=== PATIENT | male | born 1950 | race Caucasian/White ===

== ENCOUNTER 2021-10-07 07:52 | Emergency (ER) | payer MEDICARE, SELFPAY ==
--- NOTE | ~2021-10-07 | XR_ITS ---
EXAMINATION: XR chest 1V DATE: 10/07/2021 11:49 INDICATION: Hypertension. TECHNIQUE: A single frontal view of the chest was obtained. COMPARISON: Chest single view 12/02/2009, chest CT 05/27/2007 FINDINGS: There is a diffuse interstitial pattern in the lungs. There are airspace opacities in the l ower lung zones. No pleural effusion or pneumothorax. The heart size is normal. IMPRESSION: 1. Diffuse lung disease, likely mild pulmonary edema and basilar atelectasis versus pneumonia. Reviewed, dictated and finalized at location A. ING IN MACHINE TENDER IMPRESSION: 1. Diffuse lung disease, likely mild pulmonary edema and basilar atelectasis ve rsus pneumonia.
[2021-10-07 08:03] VITALS: BP 162/107; PULSE 65; RESP 16; TEMP 36.6; O2SAT 100
--- NOTE | 2021-10-07 08:03 | ED.GENADULT ---
HPI - General Adult General Chief complaint: Recheck/Abnormal Lab/Rx Stated complaint: htn x 2 days Time Seen by Provider: 10/07/21 08:01 Source: patient and family Mode of arrival: ambulatory Limitations: no limitations History of Present Illness HPI narrative: Patient woke up this morning with slight frontal headache, blood pressure was 170/120, less than 5 minutes after taking his morning blood pressure medicine. Currently patient denying any symptoms. Patient is status post cardioversion for atrial fibrillation 5 days ago. Patient on Xarelto. Currently patient is asymptomatic. Patient is fully vaccinated for COVID-19. Patient used to be on chlorthalidone 25 mg once a day, which is stopped almost 2 weeks ago. Patient also telling me that he been gaining weight over the last 2 weeks about 15 pounds. Related Data Home Medications Medication Instructions Recorded Confirmed lisinopril 5 mg tablet 5 mg PO DAILY 09/09/19 01/30/21 magnesium oxide 400 mg (241.3 mg 400 mg PO DAILY 09/09/19 01/30/21 magnesium) tablet potassium chloride 10 mEq 10 meq PO DAILY 09/09/19 01/30/21 tablet,extended release sotalol 120 mg tablet 120 mg PO Q12H 09/09/19 01/30/21 chlorthalidone 25 mg tablet 25 mg PO DAILY 01/23/21 01/30/21 rivaroxaban 20 mg tablet 20 mg PO QPM 01/23/21 01/30/21 Allergies Allergy/AdvReac Type Severity Reaction Status Date / Time Iodinated Contrast Media Allergy Unknown Unknown Verified 10/07/21 08:09 tetracycline Allergy Unknown Unknown Verified 10/07/21 08:09 Tetracyclines Allergy Unknown Unknown Verified 10/07/21 08:09 Contrast Media Allergy Severe RASH Uncoded 01/23/21 15:08 Review of Systems Review of Systems: CONSTITUTIONAL: Denies fever, chills, or sweats. EYES: Denies visual changes, redness, or discharge. ENT: Denies rhinorrhea, congestion, sore throat, or otalgia. CARDIOVASCULAR: Denies chest pain, palpitations, or edema. RESPIRATORY: Denies cough or dyspnea. GASTROINTESTINAL: Denies abdominal pain, nausea, vomiting, or diarrhea. GENITOURINARY: Denies dysuria or hematuria. SKIN: Denies rash or itching. MUSCULOSKELETAL: Denies back pain, joint pain, or myalgia. NEUROLOGIC: Denies headache, numbness, or weakness. PSYCHIATRIC: Denies anxiety or depression. 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 Musculoskeletal: Normal range of motion, nontender back Neurologic: Alert and oriented ?3, WIRED SWEATBAND CUTTER is normal as tested, no gross motor deficit Course Course Emergency Course: Stable Consultations Consultation #1: DR MAGANA. Cured Meat Packing Supervisor
--- NOTE | 2021-10-07 09:27 | ECG_ITS ---
Measurements Intervals [place] Rate: 62 P: 42 ID: [id number] QRS: -46 QRSD: 83 T: -36 QT: 412 QTc: 422 Interpretive Statements SINUS RHYTHM BORDERLINE R WAVE PROGRESSION, ANTERIOR LEADS INFERIOR INFARCT, AGE INDETERMINATE BASELINE ARTIFACT- II, III, AVL, AVF, V3-V6 ABNORMAL ECG Electronically Signed On 10-07-2021 17:20:27 RECREATIONAL ASSISTANT by José Luis Hopson D.O.
[2021-10-07 10:00] LABS: Alanine Aminotransferase 45 U/L (4-50); Albumin Level 3.2 g/dL (3.5-5.1); Alkaline Phosphatase 137 U/L (38-126); Anion Gap 6 mmol/L (8-16); Aspartate Amino Transferase 31 U/L (17-59); Basophils Percent Auto 0.4 % (0.2-1.2); Bilirubin,Total 1.1 mg/dL (0.2-1.3); Blood Urea Nitrogen 16 mg/dL (9-20); Calcium 8.9 mg/dL (8.4-10.2); Carbon Dioxide 25 mmol/L (22-30); Chloride 108 mmol/L (98-107); Eosinophils Absolute Auto 0.1 K/mm3 (0-0.3); Eosinophils Percent Auto 2.2 % (0-4.4); Estimated CRCL calculation 56 ml/min; Estimated Glomerular Filt Rate > 60; Glucose 102 mg/dL (65-110); Hematocrit 40.4 % (42.0-52.0); Hemoglobin 13.1 g/dL (14.0-18.0); Immature Granulocyte Absolute 0.01 K/mm3 (0.00-0.031); Immature Granulocyte Percent A 0.2 % (0-0.5); Lymphocytes Absolute Auto 1.11 K/mm3 (0.9-3.2); Lymphocytes Percent Auto 20.6 % (18.3-44.2); Mean Corpuscular HGB Conc 32.4 g/dl (32-36); Mean Corpuscular Hemoglobin 30.7 pg (26-34); Mean Corpuscular Volume 94.6 fl (80-100); Mean Platelet Volume 10.7 fl (7.4-10.4); Monocytes Absolute Auto 0.5 K/mm3 (0.1-0.6); Monocytes Percent Auto 8.3 % (2.6-8.5); Neutrophils Absolute Auto 3.7 K/mm3 (1.3-6.7); Neutrophils Percent Auto 68.3 % (45.5-73.1); Platelet Count Result 176 k/mm3 (150-375); Potassium 4.2 mmol/L (3.4-5.0); Red Blood Count 4.27 M/mm3 (4.6-6.20); Red Cell Distribution Width 13.8 % (11.5-14.5); Sodium 139 mmol/L (137-145); White Blood Count 5.4 K/mm3 (4.5-10.0)
[2021-10-07 10:02] LABS: INR 1.6; Prothrombin Time 18.4 Seconds (11.1-14.7)
[2021-10-07 10:03] LABS: Partial Thromboplastin Time 30.5 SECONDS (22.3-36.8)
[2021-10-07 10:12] LABS: NT Pro B Type Natriuretic Pept 6160 pg/mL (5-100); Troponin I < 0.012 ng/mL (0.000-0.034)
[2021-10-07 11:00] VITALS: BP 146/97; PULSE 64; RESP 16; O2SAT 100
[2021-10-07] MEDS: FUROSEMIDE INJ 100 MG/10 ML VIAL 60 MG IV PUSH (12:58)
[2021-10-07 13:01] VITALS: BP 153/97; PULSE 67; RESP 18; O2SAT 100
== END 2021-10-07 13:57 | disposition home or self-care (01) ==
PROVIDERS: Emergency Provider Emergency Medicine; PCP Family Medicine
DX: I11.0 Hypertensive heart disease with heart failure (principal); I50.9 Heart failure, unspecified; R94.31 Abnormal electrocardiogram [ECG] [EKG]
CPT/HCPCS: 36415; 71045; 80053; 83880; 84484; 85025; 85610; 85730; 93005; 96374; 99284; J1940

== ENCOUNTER 2024-09-08 15:54 | Outpatient (CLI) | payer MEDICARE, SELFPAY ==
--- NOTE | ~2024-09-08 | XR_ITS ---
EXAMINATION: XR thoracic spine 3V DATE: 09/08/2024 16:18 INDICATION: Strain of muscle and tendon of back wall. TECHNIQUE: 3 views of thoracic spine were obtained. COMPARISON: None. FINDINGS: There is kyphosis of thoracic spine. There is mild chronic anterior wedging of T12 vertebra l body. There is mildly decreased disc height at multiple levels in mid thoracic spine. There are end plate osteophytes at most levels. Surgical clips in the right upper quadrant are likely from cholecys tectomy. IMPRESSION: 1. Mild thoracic spondylosis. 2. Thoracic kyphosis. Reviewed, dictated and finalized at location A. T ROCK HANGER
== END 2024-09-08 15:55 | disposition home or self-care (01) ==
LOC: ANHIMG 15:57
PROVIDERS: PCP Family Medicine; Visit Provider Physician Assistant Medical
DX: S29.012A Strain of muscle and tendon of back wall of thorax, initial encounter (principal); M43.04 Spondylolysis, thoracic region; M40.294 Other kyphosis, thoracic region; X58.XXXA Exposure to other specified factors, initial encounter
CPT/HCPCS: 72072

== ENCOUNTER 2025-03-25 09:11 | Outpatient (CLI) | payer MEDICARE, SELFPAY ==
--- NOTE | ~2025-03-25 | CT_ITS ---
CT of the Abdomen and Pelvis: Indication: Diverticulitis Technique: 2.5 mm axial scans were obtained through the abdomen and pelvis following intravenous adm inistration of 100 cc of Omnipaque 350. Dose reduction technique was used on this scan by utilizing a utomated exposure control and iterative reconstruction technique. The dose-length product (DLP) was 7 00.87 mGy-cm. Findings: Scans through the lung bases are unremarkable. The liver, spleen, pancreas, adrenals and kidneys are within normal limits. Cholecystectomy clips. No evidence of aortic aneurysm. No lymphadenopathy. No bowel obstruction or bowel wall thickening. There is no evidence to suggest acute appendicitis. Images through the pelvis were performed. Urinary bladder unremarkable. Prostate gland is significant ly enlarged. Small fat-containing right inguinal hernia present. No pelvic mass evident otherwise. No ascites. Impression: No acute abnormality. Prostatomegaly. Small fat-containing right inguinal hernia. Reviewed, dictated and finalized at [facility]. Impression: No acute abnormality. Prostatomegaly. Small fat-containing right inguinal hernia.
--- OUTSIDE RECORDS SUMMARY | 2025-03-25 09:15 | XMS_ITS | Clinical Summary ---
Author Organization [facility] Address [address] [place] [id number] Phone Care Team Providers Care Supply Assistant Name Role Phone Unavailable Primary Care Provider Unavailabl e Medications magnesium oxide (MAG-OX) 400 MG tablet 1 tab/cap bid 03/27/2014 Active sotalol (BETAPACE) 120 MG tablet 1 tab/cap bid 03/27/2014 Active aspirin 325 MG tablet 1 tab/cap qday 03/27/2014 Active omeprazole (PriLOSEC) [address] capsule 1 tab/cap qday 03/27/2014 Active atorvastatin (LIPITOR) 10 MG tablet 1 tab/cap qday 03/27/2014 Active lisinopril (PRINIVIL,ZESTRI L) 10 MG tablet 1 tab/cap qday 03/27/2014 Active Active Problems Problem Noted Date Diagnosed Date Acquired cyst of kidney 03/27/2014 Gastro-esophageal reflux disease without esophag itis 03/27/2014 Atrial fibrillation 03/27/2014 Essential (primary) hypertension 03/27/2014 Other hyperlipidemia 03/27/2014 Overview (01/02/2019): Converted unresolved ICD9, potential mismatch. Family History Medical History Relation Comments Heart disease Father Cerebrovascular accident Mother Kidney disease Neg Hx Kidney stone Neg Hx Relation Status Comments Father Mother Social History Tobacco Use Types Packs/Day Years Used Date Smoking Tobacco: Never Assessed Sex and Gender Information Value Date Recorded Sex Assigned at Not on file Legal Sex Male 8:59 AM MST Gender Identity Not on file Sexual Orientation Not on file Last Filed Vital Signs Vital Sign Reading Time Taken Comments Blood Pressure 130/74 08/02/2015 12:01 AM CDT Sitting, Right Pulse - - Temperature 36.7 C (98.1 F) 08/02/2015 12:01 AM CDT Respiratory Rate 18 10/10/2014 12:0 1 AM CORRECTIONAL LIEUTENANT Oxygen Saturation - - Inhaled Oxygen Concentration - - Weight 98 kg (216 lb) 08/02/2015 12:01 AM CDT Height 172.7 cm (5' 8) 08/02/2015 12:0 1 AM CDT Body Mass Index 32.84 08/02/2015 12:01 AM CDT Plan of Treatment Not on file
--- OUTSIDE RECORDS SUMMARY | 2025-03-25 09:15 | XMS_ITS | Clinical Summary ---
Author Organization [facility] Address [address] [facility] Attn: Epic Prelude ADT JOSUÉ JIMENEZ [place]ORIA [address] Care Team Providers Care Street Light Servicer Name Role Phone Unavailable Primary Care Provider Unavailabl e Medications cholecalcifero l 1,250 mcg (50,000 unit) Capsule Take 1 Capsule (50,000 Units) by mouth every 7 days for 8 weeks. 8 Capsule 11/24/2023 4:25 PM ELECTRICIAN HELPER AUTOMOTIVE 4 Active methylPREDNISo lone (MEDROL DOSPACK) 4 mg Tablets, Dose Pack Take as directed on package 21 Each 01/21/2024 1:08 PM CDT 4 Active potassium chloride (KLOR-CON) 10 mEq Extended Release tablet Take 1 tablet by mouth 2 times weekly. 26 Tablet 3 08/05/2024 12:25 PM CDT 4 Active nirmatrelvir-r itonavir (Paxlovid) 300(150mg x 2)-100 mg oral pack Take TWO (150 mg tablets of nirmatrelvir) with ONE (100 mg tablet of ritonavir) by mouth two times daily for 5 days. 30 Each 05/24/2024 10:24 AM CDT 4 Active lisinopriL (PRINIVIL) 20 mg tablet Take 1 Tablet (20 mg) by mouth 2 times daily. 180 Tablet 3 01/31/2025 2:56 PM CDT 4 Active potassium chloride (KLOR-CON M10) 10 mEq Extended Release tablet Take 1 Tablet (10 mEq) by mouth daily with breakfast. 90 Tablet 3 11/24/2024 12:20 PM ELECTRICIAN HELPER AUTOMOTIVE 4 Active fluticasone propionate (FLONASE) 50 mcg/spray [place], Suspension nasal inhaler Administer 2 Sprays in each nostril daily. 48 Gram 2 01/16/2025 11:47 AM CDT 4 Active hydroCHLOROthi azide 25 mg tablet Take 0.5 Tablets (12.5 mg) by mouth 2 times daily. 90 Tablet 3 11/09/2024 11:06 AM ELECTRICIAN HELPER AUTOMOTIVE 4 Active tiZANidine (ZANAFLEX) 2 mg Tablet Take one tablet (2 mg) orally three times a day As Needed for muscle spasticity 20 Tablet 09/09/2024 11:09 AM ELECTRICIAN HELPER AUTOMOTIVE 4 Active predniSONE (DELTASONE) 20 mg tablet Take 3 tablets by mouth (60mg) at 13 hours, 6 hours, and [address] scan. 9 Tablet 11/17/2024 4:01 PM ELECTRICIAN HELPER AUTOMOTIVE 5 Active atorvastatin (LIPITOR) 10 mg tablet Take 1 Tablet (10 mg) by mouth daily. 90 Tablet 3 03/20/2025 11:01 AM CDT 5 Active rivaroxaban (XARELTO) 20 mg Tablet Take 1 Tablet (20 mg) by mouth daily. 90 Tablet 3 12/29/2024 12:03 PM CDT 5 Active sotaloL (BETAPACE) 120 mg Tablet Take 0.5 Tablets (60 mg) by mouth 2 times daily. 90 Tablet 3 01/31/2025 2:56 PM CDT 5 Active omeprazole (PriLOSEC) 40 mg Capsule, Delayed Release(E.C.) TAKE 1 CAPSULE BY MOUTH DAILY 90 Capsule 3 03/22/2025 11:06 AM CDT 5 Active ondansetron (ZOFRAN) 8 mg Tablet Take 1 Tablet (8 mg) by mouth every 8 hours. 20 Tablet 03/23/2025 4:25 PM CDT 5 Active amLODIPine (NORVASC) 5 mg tablet Take 1 Tablet (5 mg) by mouth daily. 90 Tablet 3 03/24/2025 10:55 AM CDT 5 Active diphenhydrAMIN E (Sominex Maximum Strength) 50 mg Tablet Take 50 mg by mouth [address] scan 1 Tablet 5 Active predniSONE (DELTASONE) 50 mg tablet Take 1 tablet by mouth [address], 1 tablet [address], and 1 tablet [address] 3 Tablet 03/24/2025 10:55 AM CDT 5 Active omeprazole (PriLOSEC) 40 mg Capsule, Delayed Release(E.C.) TAKE 1 CAPSULE BY MOUTH DAILY 90 Capsule 3 12/16/2024 2:37 PM ELECTRICIAN HELPER AUTOMOTIVE 4 03/21/20 25 Discontinu ed(Reorder ) amoxicillin-cl avulanate (AUGMENTIN) 875-125 mg tablet Take 1 Tablet by mouth 2 times daily for 10 days. 20 Tablet 02/14/2025 4:16 PM CDT 5 02/25/20 25 sulfamethoxazo le-trimethopri m (BACTRIM DS) 800-160 mg tablet Take 1 Tablet by mouth every 12 hours for 10 days. 20 Tablet 02/28/2025 11:53 AM CDT 5 03/10/20 25 Social History Tobacco Use Types Packs/Day Years Used Date Smoking Tobacco: Never Assessed Sex and Gender Information Value Date Recorded Sex Assigned at Not on file Legal Sex Male 3:27 PM CDT Gender Identity Not on file Sexual Orientation Not on file Plan of Treatment Health Maintenance Due Date Last Done Comments DTAP/TDAP/TD VACCINES (1 - Tdap) 1970 COLORECTAL SCREENING 1996 Colorectal Cancer Screening 1996 FIT-DNA Q 3 years 1996 FIT/FOBT Q 1 year 1996 Flex Sig/CT Colonography Q 5 years 1996 PNEUMOCOCCAL VACCINE 50+ YEARS (1 of 1 - PCV) 07/02/20 ZOSTER VACCINE (1 of 2) 2001 INFLUENZA VACCINE (#1) 2024 RSV VACCINE (60+ or ) (1 - 1-dose 75+ series) 2026 Insurance RX [employer] (INTERNAL) [facility] RX [employer] RX Member Subscriber Plan / Payer (Ef fective 2024-Present) Name:Zak Jeff Relation to Subscriber:Self Name:Zak Jeff Subscriber ID:Not on file Payer ID:Not on file Group ID:[id number] Type:RX Commercial Address: [address]
--- OUTSIDE RECORDS SUMMARY | 2025-03-25 09:15 | XMS_ITS | Clinical Summary ---
Author Organization [facility] [employer] Address [address] [facility] [place] [address] Care Team Providers Care Software Development Analyst Name Role Phone Alex New MD Primary Care Provider [phone] Source Comments [facility],non-owned Affiliates and Associated Physician Practices is amultiple site organization consisting of ambulatory clinics and hospital sitesin [place], [place], [place] and [place]. This disclosure is being madepursuant to the Care Everywhere program and may not contain all information available regarding this patient. Last updated 18.[facility] [employer] Allergies Active Allergy Reactions Criticality Noted Date Comments Contrast-Iodinated Agents For Ct/Other Skin Reactions [facility] 02/16/2013 Medications * Be aware that medications may not be up to date on this document. Alwaysverify current medications with the patient. chlorthalidone (HYGROTON) 25 MG tablet 1 tablet DAILY. 08/22/2017 Active Magnesium Oxide 400 (240 MG) MGIndications:H epatitis B, chronic (HCC),Chronic viral hepatitis B without delta agent and without coma (HCC) Take 1 tablet by mouth once daily Active omeprazole (PRILOSEC) 40 MG capsuleIndicati ons:Hepatitis B, chronic (HCC),Chronic viral hepatitis B without delta agent and without coma (HCC) 12/16/2017 Active lisinopril (PRINIVIL;ZESTR IL) 5 MG tabletIndicatio ns:Hepatitis B, chronic (HCC),Chronic viral hepatitis B without delta agent and without coma (HCC) 2.5 mg 2 times daily 01/14/2018 Active FLUTICASONE PROPIONATE, NASAL, NAIndications:H epatitis B, chronic (HCC),Chronic viral hepatitis B without delta agent and without coma (HCC) Active potassium chloride (KLOR-CON M) 10 MEQ tabletIndicatio ns:Hepatitis B, chronic (HCC),Chronic viral hepatitis B without delta agent and without coma (HCC) once daily 01/15/2018 Active sotalol (BETAPACE) 120 MG tabletIndicatio ns:Hepatitis B, chronic (HCC),Chronic viral hepatitis B without delta agent and without coma (HCC) 2 TIMES DAILY. Active Rivaroxaban (XARELTO PO)Indications: Hepatitis B, chronic (HCC),Chronic viral hepatitis B without delta agent and without coma (HCC) Take 20 mg by mouth once daily Active atorvastatin (LIPITOR) 20 MG tablet Take 20 mg by mouth at bedtime Active Active Problems Problem Noted Date Diagnosed Date Fatty (change of) liver, not elsewhere classifie d 02/11/2017 Encounter for screening for malignant neoplasm o f colon 03/04/2014 Viral hepatitis B without hepatic coma 3 Family History Medical History Relation Name Comments CAD (Coronary Artery Disease) Father COPD - Chronic Obstructive Pulmonary Disease Father Aneurysm, Brain Mother CAD (Coronary Artery Disease) Mother Relation Name Status Comments Father Mother Social History Tobacco Use Types Packs/Day Years Used Date Smoking Tobacco: Never Smokeless Tobacco: Never Alcohol Use Standard Drinks/Week Comments No 0 (1 standard drink = 0.6 oz pur e alcohol) Sex and Gender Information Value Date Recorded Sex Assigned at Not on file Legal Sex Male 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 AIR 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 Gender Identity Not on file Sexual Orientation Not on file Last Filed Vital Signs Vital Sign Reading Time Taken Comments Blood Pressure 99/68 02/22/2019 9:07 AM CDT Pulse 50 02/22/2019 9:07 AM CDT Temperature 36.5 C (97.7 F) 02/22/2019 9:07 AM CDT Respiratory Rate 18 02/22/2019 9:07 AM CDT Oxygen Saturation 100% 02/22/2019 9:07 AM CDT Inhaled Oxygen Concentration - - Weight 78.6 kg (173 lb 3.2 oz) 02/22/2019 9:07 A M CDT Height 175.3 cm (5' 9) 02/22/2019 9:07 AM CDT Body Mass Index 25.58 02/22/2019 9:07 AM CDT Plan of Treatment Health Maintenance Due Date Last Done Comments COLOGUARD (AGES 45-75) - COLON CA SCREENING 1951 COLON MONITORING 1951 COLONOSCOPY - COLON CA SCREENING 1951 CT COLONOGRAPHY - COLON CA SCREENING 1951 Colorectal Cancer Screening 1951 FIT - COLON CA SCREENING 1951 FLEX SIG - COLON CA SCREENING 1951 HEPATITIS C SCREENING 06/27/1969 DTAP/TDAP/TD VACCINES (1 - Tdap) 1970 PNEUMOCOCCAL VACCINE 50+ (1 of 1 - PCV) 2001 ZOSTER VACCINE (1 of 2) 2001 SCREENING FOR DIABETES 01/22/2022 9, 02/06/2018, 08/26/2017, Additional history exists COVID-19 VACCINE (1 - 2023- season) 2024 DEPRESSION SCREENING 10/20/2024 INFLUENZA VACCINE (Season Ended) 2025 Respiratory Syncytial Virus (RSV) Vaccine Pt: or over 60 yrs (1 - 1-dose 75+ series) 2026 HEPATITIS B VACCINE Aged Out No longe r eligible based on patient's age to complete this topic HIB VACCINE Aged Out No longer eligi ble based on patient's age to complete this topic HPV VACCINE Aged Out No longer eligi ble based on patient's age to complete this topic MENINGOCOCCAL (Group B) VACCINE SHARED DECISION-MAKING Aged Out No longer eligible based on patient's age to complete this topic MENINGOCOCCAL GROUPS A/C/Y/W VACCINE Aged Out No longer eligible based on patient's age to complete this topic Goals Goal Patient Goal Type Associated Problems Recent Progress Patient-Stated? Author Medication Management General On track( 019 9:46 AM CDT) No Tessa Martinez, RN Note: Expected end date: Ongoing Interventions: Take all medications as prescribed Let your doctor know right away about any changes in your medications Make sure to request a refill of your medication at least one week prior to your last dose Procedures Procedure Name Priority Date/Time Associated Diagnosis Comments COMPREHENSIVE METABOLIC PANEL Routine 01/22/2019 9:29 AM CDT Viral hepatitis B chronic from Last 3 Months or Most Recently Relevant to Health Maintenance Results * COMPREHENSIVE METABOLIC PANEL (01/22/2019 9:29 AM CDT) Glucose 96 65 - 139 mg/dL [facility] Comment: Non-fasting reference interval BUN 22 7 - 25 mg/dL [facility] Creatinine 1.23 0.70 - 1.25 mg/dL [facility] Comment: For patients >49 years of age, the reference limit for Creatinine is approximately 13% higher for people identified as -Macedonian. eGFR by MDRD 60 > OR = 60 mL/min/1 .73m2 [facility] eGFR by MDRD 70 > OR = 60 mL/min/1 .73m2 [facility] BUN/Creatinine Ratio NOT APPLICABLE 6 - 22 (calc) [facility] Sodium 139 135 - 146 mmol/L [facility] Potassium 4.1 3.5 - 5.3 mmol/L [facility] Chloride 102 98 - 110 mmol/L [facility] CO2 30 20 - 32 mmol/L [facility] Calcium 9.5 8.6 - 10.3 mg/dL [facility] Protein Total 7.0 6.1 - 8.1 g/dL [facility] Albumin 4.3 3.6 - 5.1 g/dL [facility] Globulin Total 2.7 1.9 - 3.7 g/dL (calc) [facility] Albumin/Globulin Ratio 1.6 1.0 - 2.5 (calc) [facility] Bilirubin Total 0.7 0.2 - 1.2 mg/dL [facility] Alkaline Phosphatase 94 40 - 115 U/L [facility] AST 20 10 - 35 U/L [facility] ALT 13 9 - 46 U/L [facility] Comment: Test Performed at: [facility] [id number] [place] [address] COLE COLMENARES DO,MPH Blood BLOOD SPECIMEN / Unknown 01/22/2019 9:29 AM CDT 01/22/2019 9:30 AM CDT us Krzysztof Bowden MD LAB - CHEMISTRY ORDERABLES Danelle gorge Result [facility] [id number] [place] [address] from Last 3 Months or Most Recently Relevant to Health Maintenance [place] [address] [facility] MEDICARE [facility] Address: [facility] [id number] [place] [address] Care Teams Software Development Analyst Relationship Specialty Start Date End Date Alex New MD [address] [place] [address] PCP - General 02/21/17"
[2025-03-25 09:31] LABS: Estimated Glomerular Filt Rate 59
== END 2025-03-25 09:12 | disposition home or self-care (01) ==
PROVIDERS: PCP Family Medicine
DX: K40.90 Unilateral inguinal hernia, without obstruction or gangrene, not specified as recurrent (principal); N40.0 Benign prostatic hyperplasia without lower urinary tract symptoms
CPT/HCPCS: 74177; Q9967

== ENCOUNTER 2025-03-26 14:29 | Emergency (ER) | payer MEDICARE, SELFPAY ==
--- OUTSIDE RECORDS SUMMARY | 2025-03-26 14:30 | XMS_ITS | Clinical Summary ---
Author Organization [facility] [employer] Address [address] [facility] [place] [address] Care Team Providers Care Principal Accounts Clerk Name Role Phone Alex New MD Primary Care Provider [phone] Source Comments [facility],non-owned Affiliates and Associated Physician Practices is amultiple site organization consisting of ambulatory clinics and hospital sitesin [place], [place], [place] and [place]. This disclosure is being madepursuant to the Care Everywhere program and may not contain all information available regarding this patient. 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 eGFR by MDRD 60 > OR = [...] 46 U/L [facility] Comment: Test Performed at: [email or web address] [id number] [place] [address] COLE COLMENARES DO,MPH Blood BLOOD SPECIMEN / Unknown 01/22/2019 9:29 AM CDT 01/22/2019 9:30 AM CDT us Krzysztof Bowden MD LAB - CHEMISTRY ORDERABLES [place]elle [place] Result [facility] [id number] [place] [address] from Last 3 Months or Most Recently Relevant to Health Maintenance Insurance MEDICARE [facility] MEDICARE [facility] Care Teams Principal Accounts Clerk Relationship Specialty Start Date End Date Alex New MD [address] [place] [address] PCP - General 02/21/17
--- OUTSIDE RECORDS SUMMARY | 2025-03-26 14:30 | XMS_ITS | Clinical Summary ---
Author Organization [facility] Address [address] [place] [phone] Phone Care Team Providers Care Induction Heat Treater Name Role Phone Unavailable Primary Care Provider [...] Respiratory Rate 18 10/10/2014 12:0 1 AM HIDE AND SKIN COLERER Oxygen Saturation - - Inhaled Oxygen Concentration - - Weight 98 kg (216 lb) 08/02/2015 12:01 AM CDT Height 172.7 cm (5' 8) 08/02/2015 12:0 1 AM CDT Body Mass Index 32.84 08/02/2015 12:01 AM CDT Plan of Treatment Not on file
--- OUTSIDE RECORDS SUMMARY | 2025-03-26 14:30 | XMS_ITS | Clinical Summary ---
Author Organization [facility] Address [address] [facility] Attn: Epic Prelude ADT JOSUÉ JIMENEZ GLORIA [id number] Care Team Providers Care Ornamental Ironworker Name Role Phone Unavailable Primary Care Provider Unavailabl e Medications cholecalcifero l 1,250 mcg (50,000 unit) Capsule Take 1 Capsule (50,000 Units) by mouth every 7 days for 8 weeks. 8 Capsule 11/24/2023 4:25 PM MARKETING OPERATIONS ASSOCIATE 4 Active methylPREDNISo lone (MEDROL DOSPACK) 4 [...] breakfast. 90 Tablet 3 11/24/2024 12:20 PM MARKETING OPERATIONS ASSOCIATE 4 Active fluticasone propionate (FLONASE) 50 mcg/spray [place], Suspension nasal inhaler Administer 2 Sprays in each nostril daily. 48 Gram 2 01/16/2025 11:47 AM CDT 4 Active hydroCHLOROthi azide 25 mg tablet Take 0.5 Tablets (12.5 mg) by mouth 2 times daily. 90 Tablet 3 11/09/2024 11:06 AM MARKETING OPERATIONS ASSOCIATE 4 Active tiZANidine (ZANAFLEX) 2 mg Tablet Take one tablet (2 mg) orally three times a day As Needed for muscle spasticity 20 Tablet 09/09/2024 11:09 AM MARKETING OPERATIONS ASSOCIATE 4 Active predniSONE (DELTASONE) 20 mg tablet Take 3 tablets by mouth (60mg) at 13 hours, 6 hours, and [address] scan. 9 Tablet 11/17/2024 4:01 PM MARKETING OPERATIONS ASSOCIATE 5 Active atorvastatin (LIPITOR) 10 mg tablet [...] Tablet 03/24/2025 10:55 AM CDT 5 Active doxycycline hyclate (VIBRAMYCIN) 100 mg tablet Take 1 Tablet (100 mg) by mouth every 12 hours for 14 days. 28 Tablet 03/25/2025 2:48 PM CDT 5 04/08/20 25 Active omeprazole (PriLOSEC) 40 mg Capsule, Delayed Release(E.C.) TAKE 1 CAPSULE BY MOUTH DAILY 90 Capsule 3 12/16/2024 2:37 PM MARKETING OPERATIONS ASSOCIATE 4 03/21/20 25 Discontinu ed(Reorder ) amoxicillin-cl [...]
[2025-03-26 14:32] VITALS: BP 198/108; PULSE 63; RESP 14; O2SAT 97
[2025-03-26 14:56] VITALS: RESP 16
[2025-03-26 14:57] VITALS: BP 173/102; PULSE 60; RESP 16; O2SAT 99
--- NOTE | 2025-03-26 15:07 | ECG_ITS ---
Test Date: 2025-03-26 16:03:26 Measurements Intervals Tate Rate: 55 P: 49 PA: 191 QRS: -42 QRSD: 97 T: -29 QT: 439 QTc: 421 Interpretive Statements SINUS BRADYCARDIA BORDERLINE R WAVE PROGRESSION, ANTERIOR LEADS INFERIOR INFARCT, AGE INDETERMINATE BORDERLINE T WAVE ABNORMALITY- ANTEROLATERAL LEADS BASELINE ARTIFACT- I, II, AVR ABNORMAL ECG No previous ECG available for comparison Electronically Signed On 03-26-2025 16:10:50 CDT by José Luis Hopson D.O.
--- NOTE | 2025-03-26 16:06 | ED.GENADULT ---
HPI - General Adult General Chief complaint: Recheck/Abnormal Lab/Rx Stated complaint: high BP Time Seen by Provider: 03/26/25 14:38 History of Present Illness HPI narrative: Patient is a 74-year-old male who presents ER with elevated blood pressure reading. He has had some elevated blood pressures over last 2 days. Grievance And Appeals Specialist added on a new medicine to help with elevated readings be does not know the name of it. He did this morning with his lisinopril. No missed doses of medicine. He has been having some abdominal cramping for which she has had outpatient lab work and multiple rounds of antibiotics and a negative CT of the abdomen pelvis. Is not taking sinus decongestants other than Flonase. No headache or dizziness. No change in vision. No exertional dyspnea or chest pain. Related Data Home Medications ?Medication ?Instructions ?Recorded ?Confirmed ?Last Taken ?Type magnesium oxide 400 mg (241.3 mg 400 mg PO DAILY 09/09/19 03/23/25 Unknown History magnesium) tablet (MagOx) potassium chloride 10 mEq 10 meq PO DAILY 09/09/19 03/23/25 Unknown History tablet,extended release rivaroxaban 20 mg tablet (Xarelto) 20 mg PO QPM 01/23/21 03/23/25 Unknown History sotalol 120 mg tablet 60 mg PO Q12H 08/09/24 03/23/25 Unknown History hydrochlorothiazide 25 mg tablet 25 mg PO DAILY 09/08/24 03/23/25 Unknown History lisinopril 20 mg tablet 40 mg PO 03/23/25 03/23/25 Unknown History Allergies Allergy/AdvReac Type Severity Reaction Status Date / Time Iodinated Contrast Media AdvReac Intermediate Rash Verified 03/23/25 13:40 tetracycline AdvReac Intermediate Other Verified 03/23/25 13:40 Review of Systems Review of Systems: All systems reviewed & are unremarkable except as noted in HPI and below Constitutional: Constitutional: Reports no additional constitutional complaints ENT: Reports system reviewed and no additional complaints, except as documented Cardiovascular: Cardiovascular: Reports no additional cardiovascular complaints Respiratory: Respiratory: Reports no additional respiratory complaints Gastrointestinal: Gastrointestinal: Reports no additional gastrointestinal complaints [facility] Past Medical History Medical History Adult BMI 27.0-27.9 kg/sq m Afib Surgical History Surgical History Hx of colonoscopy Family History Family History Mother Cerebrovascular accident Brain aneurysm Father Family history of emphysema Other Family history of cardiovascular disease Social History Social History Smoking status: Never smoker Second hand tobacco smoke exposure: Yes Alcohol intake: never Substance use: never Substance use type: does not use Do You Feel Safe in your Home?: Yes Lack of Transportation: No Lack of Food: Never True Current Housing: I Have Housing Concerned About Future Housing: No Difficulty Paying Gas/Electric Bills: No Difficulty Paying for Meds: No Currently Unemployed: No Education: Bachelor's Degree Difficulty w/ Childcare or Family Care: No Living arrangements: with family Occupation/Education: retired 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 HEAD: Normocephalic, atraumatic. ENT: Mucous membranes moist. CHEST: Clear to auscultation. No respiratory distress. HEART: Bradycardic and regular. Normal peripheral pulses. ABDOMEN: Soft, nontender, nondistended. EXTREMITIES: Normal range of motion. No edema. SKIN: Warm, dry, no rash. NEURO: Alert and oriented x3. PSYCH: Normal mood and affect. Course Course Emergency Course: Patient's blood pressure normalized on its own without receiving any medication. He has no symptoms. Rafaela not doing lab work as I reviewed this weeks labs and they are normal. Additionally his outpatient CT was normal and I recommended he stop taking his doxycycline. Discharge home. Vital Signs Vital signs: Vital Signs Pulse Rate 63 03/26/25 14:32 Respiratory Rate 14 03/26/25 14:32 Blood Pressure 198/108 H 03/26/25 14:32 Pulse Oximetry 97 03/26/25 14:32 Oxygen Delivery Room Air 03/26/25 14:32 Pulse Rate 60 03/26/25 14:57 Respiratory Rate 16 03/26/25 14:57 Blood Pressure 173/102 H 03/26/25 14:57 Pulse Oximetry 99 03/26/25 14:57 Oxygen Delivery Room Air 03/26/25 14:32 Medical Decision Making Vital Signs Vital Signs: Vital Signs Pulse Rate 63 03/26/25 14:32 Respiratory Rate 14 03/26/25 14:32 Blood Pressure 198/108 H 03/26/25 14:32 Pulse Oximetry 97 03/26/25 14:32 Oxygen Delivery Room Air 03/26/25 14:32 Pulse Rate 60 03/26/25 14:57 Respiratory Rate 16 03/26/25 14:57 Blood Pressure 173/102 H 03/26/25 14:57 Pulse Oximetry 99 03/26/25 14:57 Oxygen Delivery Room Air 03/26/25 14:32 ECG Data EKG #1: ECG completion date: 03/26/25 ECG completion time: 16:03 EKG Interpretation: bradycardia (55), sinus rhythm, non-specific ST changes, normal QRS and normal QT Discharge Plan Discharge Clinical Impression: Elevated blood pressure reading Patient Disposition: Still a Patient Condition: Stable Instructions: How to Take a Blood Pressure Reading (ED), Hypotension (ED) Additional Instructions: Please return to the emergency department if you develop severe and persistent chest pain, difficulty breathing, dizziness, leg swelling or if you are coughing up blood as these can be signs of a medical emergency. Please call your doctor for a follow up appointment to determine the need for further testing. Patient Language: Kiswahili Prescriptions: No Action lisinopril 20 mg tablet 40 mg PO ondansetron HCl 8 mg tablet 8 mg PO Q8H Qty: 20 0RF diphenhydramine HCl 50 mg tablet 50 mg PO ONCE Qty: 1 0RF Rx Instructions: [address] scan prednisone 50 mg tablet 50 mg PO DAILY Qty: 3 0RF Rx Instructions: 1 tab [address] 1 tab [address] 1 tab [address] doxycycline hyclate 100 mg tablet 100 mg PO Q12H 14 Days Qty: 28 0RF magnesium oxide [MagOx] 400 mg (241.3 mg magnesium) tablet 400 mg PO DAILY potassium chloride 10 mEq tablet extended release 10 meq PO DAILY Xarelto 20 mg tablet 20 mg PO QPM Rx Instructions: must administer with evening meal hydrochlorothiazide 25 mg tablet 25 mg PO DAILY atorvastatin 10 mg tablet See Rx Instructions .ROUTE .COMPLEX Qty: 90 3RF Dose Instruction: TAKE 1 TABLET BY MOUTH EVERY DAY Rx Instructions: TAKE 1 TABLET BY MOUTH EVERY DAY sotalol 120 mg tablet 60 mg PO Q12H fluticasone propionate 50 mcg/actuation spray,suspension See Rx Instructions .ROUTE .COMPLEX Qty: 48 2RF Dose Instruction: USE 2 SPRAYS IN EACH NOSTRIL ONCE DAILY Rx Instructions: USE 2 SPRAYS IN EACH NOSTRIL ONCE DAILY omeprazole 40 mg capsule,delayed release(DR/EC) See Rx Instructions .ROUTE .COMPLEX Qty: 90 3RF Dose Instruction: TAKE 1 CAPSULE BY MOUTH DAILY Rx Instructions: TAKE 1 CAPSULE BY MOUTH DAILY Follow-up/Referrals: Alex New MD [Primary Care Provider] - 1 Week
[2025-03-26 16:20] VITALS: BP 127/85; PULSE 57; RESP 14; O2SAT 98
== END 2025-03-26 16:20 | disposition home or self-care (01) ==
PROVIDERS: Emergency Provider Emergency Medicine; PCP Family Medicine
DX: I10 Essential (primary) hypertension (principal); I48.91 Unspecified atrial fibrillation; Z77.22 Contact with and (suspected) exposure to environmental tobacco smoke (acute) (chronic); Z79.01 Long term (current) use of anticoagulants; Z79.899 Other long term (current) drug therapy; R00.1 Bradycardia, unspecified; R94.31 Abnormal electrocardiogram [ECG] [EKG]
CPT/HCPCS: 93005; 99283